=== PATIENT | male | born 1980 | race Caucasian/White ===

== ENCOUNTER 2017-12-16 21:56 | Emergency (ER) | payer OTHER ==
[2017-12-16] MEDS: HYDROCODONE/APAP (5/325) TAB PO (22:51)
== END 2017-12-17 01:03 | disposition home or self-care (01) ==
LOC: FTE 12-17 01:03
DX: S86.002A Unspecified injury of left Achilles tendon, initial encounter (principal); X58.XXXA Exposure to other specified factors, initial encounter; Y92.9 Unspecified place or not applicable
CPT/HCPCS: 73610; 99283-25